=== PATIENT | male | born 1945 | race Caucasian/White ===

== ENCOUNTER 2016-10-18 10:24 | Emergency (ER) | payer MEDICARE, OTHER ==
[~2016-10-18] VITALS: Ht 172.7 cm; Wt 76.2 kg
[~2016-10-18 10:24] MED LIST: ALBU8.5H2 IH; ASPI-605 PO; CARB100T2 PO; CLOP75TA2 PO; ENAL5TAB36 PO; METO50TA7 PO; SIMV20TA6 PO; [UNRECOGNIZED DRUG - CODE] SL
[2016-10-18 10:29] VITALS: BP 144/88
== END 2016-10-18 11:03 | disposition home or self-care (01) ==
LOC: ER 10:26
DX: R09.81 Nasal congestion (principal); I25.10 Atherosclerotic heart disease of native coronary artery without angina pectoris; I25.2 Old myocardial infarction; J45.909 Unspecified asthma, uncomplicated; Z79.82 Long term (current) use of aspirin; Z85.46 Personal history of malignant neoplasm of prostate
CPT/HCPCS: A4606; Z7502; Z7610

== ENCOUNTER 2017-02-27 22:07 | Emergency (ER) | payer MEDICARE, OTHER ==
[~2017-02-27] VITALS: Ht 172.7 cm; Wt 77.1 kg
--- NOTE | 2017-02-27 22:25 | NUR ---
ambulatory w/ steady gait for c/o sob s/p eating a cold strawberry yesterday. AOX4, afebrile w/ resp even & unlabored, bilateral wheezing w/ O2 sat 98% on RA. placed on continuous monitorng. Pending further edgar polk MD.
--- NOTE | 2017-02-27 22:26 | NUR ---
FITNESS AND WELLNESS COORDINATOR called for breathing tx.
[2017-02-27] MEDS ORDERED: ALBUTEROL FS 2.5 MG/0.5 ML VIAL.NEB ONE (22:27)
[2017-02-27] MEDS: ALBUTEROL FS 2.5 MG/0.5 ML VIAL.NEB NEB ONE (22:35)
--- NOTE | 2017-02-27 23:18 | NUR ---
pt lying in bed w/ resp even & unlabored, reports feeling better, denies any sob w/ nad noted. Awaiting test results.
--- NOTE | 2017-02-27 23:40 | NUR ---
Patient discharged to home in stable condition. Written and verbal after care instructions given. Patient verbalizes understanding of instruction.
[2017-02-27 23:41] VITALS: BP 148/76
== END 2017-02-27 23:44 | disposition home or self-care (01) ==
LOC: ER 22:09
DX: J98.01 Acute bronchospasm (principal); I25.2 Old myocardial infarction; J45.909 Unspecified asthma, uncomplicated; Z79.82 Long term (current) use of aspirin; Z85.46 Personal history of malignant neoplasm of prostate; Z95.5 Presence of coronary angioplasty implant and graft
CPT/HCPCS: 71010-TC; A4606; Z7610

== ENCOUNTER 2017-10-21 13:35 | Emergency (ER) | payer MEDICARE, OTHER ==
[~2017-10-21] VITALS: Ht 180.3 cm; Wt 68.0 kg
[~2017-10-21 13:35] MED LIST changes: -ALBU8.5H2 IH; +ALBU8.5H8 IH; +CLOP75TA15 PO; -CLOP75TA2 PO
[2017-10-21 14:13] VITALS: BP 152/88
== END 2017-10-21 15:37 | disposition home or self-care (01) ==
LOC: ER 13:39
DX: J00 Acute nasopharyngitis [common cold] (principal); J31.0 Chronic rhinitis; I25.2 Old myocardial infarction; F10.10 Alcohol abuse, uncomplicated; J45.909 Unspecified asthma, uncomplicated; Z85.46 Personal history of malignant neoplasm of prostate; Z79.82 Long term (current) use of aspirin
CPT/HCPCS: A4606; Z7610